=== PATIENT | male | born 2000 | race Caucasian/White ===

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

== ENCOUNTER 2023-01-13 12:03 | Emergency (ER) | payer MEDICAID ==
[~2023-01-13] VITALS: Ht 180.3 cm; Wt 84.1 kg
[2023-01-13 14:03] LABS: COVID AG,FIA SOURCE NASAL SWAB
[2023-01-13 14:44] LABS: INFLUENZA TYPE A NEGATIVE FOR TYPE A (NEGATIVE); INFLUENZA TYPE B NEGATIVE FOR TYPE B (NEGATIVE)
[2023-01-13 14:45] VITALS: BP 147/79
== END 2023-01-13 15:34 | disposition home or self-care (01) ==
LOC: EMS 12:05
DX: R06.02 Shortness of breath (principal); F41.9 Anxiety disorder, unspecified; Z20.822 Contact with and (suspected) exposure to COVID-19
CPT/HCPCS: 71045; 87804; 99284